=== PATIENT | female | born 1955 | race Caucasian/White ===

== ENCOUNTER 2024-02-16 13:43 | Emergency (ER) | payer OTHER, BC ==
--- NOTE | 2024-02-16 15:15 | RAD REPORT ---
EXAM DESCRIPTION: RAD - Chest Single View - 02/16/2024 3:02 pm CLINICAL HISTORY: SOB Chest pain. COMPARISON: <Comparisons> FINDINGS: Portable technique limits examination quality. The lungs are grossly clear. The heart is normal in size. No displaced fractures. IMPRESSION: No acute intrathoracic process suspected.
[2024-02-16 15:24] LABS: Absolute Eosinophils 0.1 K/uL (0-0.5); Absolute Lymphocytes (CBC) 1.5 K/uL (0.7-4.9); Absolute Monocytes 0.7 K/uL (0.1-1.3); Absolute Neutrophil 4.3 K/uL (1.8-8.0); Basophils % 0.7 % (0-1.3); Eosinophils % 1.4 % (0-4.4); Hematocrit 42.3 % (36.0-45.0); Hemoglobin 14.4 g/dL (12.0-15.0); Lymphocytes % 22.1 % (15.3-44.8); MCH 30.2 pg (27.0-35.0); MCV 88.9 fL (80-100); MPV 6.9 fL (7.6-11.3); Monocytes % 10.9 % (3.3-12.3); Neutrophils % 64.9 % (41.7-73.7); Nucleated Red Blood Cells % 0.2 % (0-0); Platelets 333 thou/uL (152-406); RBC Red Blood Cell Count 4.76 M/uL (3.86-4.86); Red Cell Distribution Width 15.1 % (12.1-15.2)
[2024-02-16 15:48] LABS: Anion Gap 7.2 mEq/L (5.0-15.0); BUN Blood Urea Nitrogen 15 mg/dL (7-18); Bicarbonate 30 mEq/L (21-32); Glomerular Filtration Rate 59 ml/min (=/>90); Glucose Level 93 mg/dL (74-106); Magnesium 2.4 mg/dL (1.6-2.4); NT PRO-BNP 26 pg/mL (<125); Potassium 4.2 mEq/L (3.5-5.1); Sodium Level 139 mEq/L (136-145); T3 Free 1.79 pg/mL (2.18-3.98)
[2024-02-16 16:17] LABS: Troponin High Sensitivity < 3.0 pg/mL (<58.9)
[2024-02-16] MEDS ORDERED: KETOROLAC 30 MG/ML INJ ONE (18:09)
--- NOTE | 2024-02-16 19:40 | EDPHYS ---
Physician Documentation [facility] Name: Yulissa Long Age: 68 yrs Sex: Female : 1955 Arrival Date: 02/16/2024 Time: 13:43 Bed 2 Private MD: ED Physician Marco Spear HPI: 02/15 14:10 This 68 yrs old Female presents to ER via Ambulatory with complaints of Chest Pain, cp Back Pain, Shortness Of Breath, Palpitations. 14:10 The patient or guardian reports chest pain that is located primarily in the anterior cp chest wall, left. Onset: 2 day(s) ago. Associated signs and symptoms: Pertinent positives: palpitations, shortness of breath, left upper back pain, Pertinent negatives: abdominal pain, cough, diaphoresis, lower extremity pain, lower extremity swelling. The chest pain is described as a pressure. 14:10 Severity of pain: in the emergency department the pain is unchanged despite home cp interventions. Patient reports she was told to take 1/2 dose of prescribed thyroid medicine due to low tsh recently. Historical: - Allergies: 13:56 Beta-Blockers (Beta-Adrenergic Blocking Agts); db - Home Meds: 13:56 diltiazem HCl 120 mg Oral Capsule, ER 24 hr [Active]; db - PMHx: 13:56 ARYTHMIA; Hypothyroidism; db - Immunization history:: Adult Immunizations unknown. - Infectious Disease History:: Denies. - Social history:: Smoking status: Patient denies any tobacco usage or history of. ROS: 14:15 Constitutional: Negative for body aches, chills, fever, poor PO intake, cp 14:15 Eyes: Negative for injury, pain, redness, and discharge, cp 14:15 ENT: Negative for drainage from ear(s), ear pain, sore throat, difficulty swallowing, difficulty handling secretions, 14:15 Cardiovascular: Positive for chest pain, palpitations, Negative for edema, 14:15 Respiratory: Positive for shortness of breath, Negative for cough, wheezing, 14:15 Abdomen/GI: Negative for abdominal pain, vomiting, diarrhea, constipation, 14:15 Back: Positive for pain at rest, of the left scapular area and left subscapular area, 14:15 Skin: Negative for cellulitis, rash, 14:15 Neuro: Negative for altered mental status, dizziness, headache, syncope, weakness, 14:15 All other systems are negative, Exam: 14:17 ECG was reviewed by the Attending Physician. cp 14:20 Constitutional: The patient appears in no acute distress, alert, awake, non-toxic, well cp developed, well nourished, anxious, 14:20 Head/Face: Normocephalic, atraumatic. cp 14:20 Eyes: Periorbital structures: appear normal, Conjunctiva: normal, no exudate, no injection, Sclera: no appreciated abnormality, Lids and lashes: appear normal, bilaterally, 14:20 ENT: External ear(s): are unremarkable, Nose: is normal, Mouth: Lips: moist, Oral mucosa: pink and intact, moist, Posterior pharynx: Airway: no evidence of obstruction, patent, 14:20 Neck: ROM/movement: is normal, is supple, without pain, no range of motions limitations, 14:20 Chest/axilla: Inspection: normal, Palpation: is normal, 14:20 Cardiovascular: Rate: normal, Rhythm: regular, Edema: is not appreciated, JVD: is not appreciated, 14:20 Respiratory: the patient does not display signs of respiratory distress, Respirations: normal, no use of accessory muscles, no retractions, labored breathing, is not present, Breath sounds: are clear throughout, no decreased breath sounds, no stridor, no wheezing, 14:20 Abdomen/GI: Inspection: abdomen appears normal, Palpation: abdomen is soft and non-tender, in all quadrants, 14:20 Back: pain, that is mild, of the left scapular area and left subscapular area, ROM is normal, 14:20 Skin: no rash present. 14:20 Neuro: Orientation: to person, place \T\ time. Mentation: is normal, Motor: moves all fours, strength is normal, Sensation: is normal, Vital Signs: 13:56 BP 147 / 73; Pulse 87; Resp 22; Temp 98.5(O); Pulse Ox 100% ; Weight 58.97 kg; Height 5 db ft. 7 in. ; 15:00 BP 124 / 78; Pulse 89; Resp 14; Pulse Ox 100% on R/A; me1 16:00 BP 116 / 74; Pulse 86; Resp 15; Pulse Ox 100% on R/A; me1 17:00 BP 132 / 84; Pulse 71; Resp 18; Pulse Ox 100% on R/A; me1 18:00 BP 131 / 87; Pulse 87; Resp 15; Pulse Ox 96% on R/A; me1 19:00 BP 120 / 91; Pulse 92; Resp 16; Pulse Ox 99% on R/A; me1 19:12 BP 129 / 79; Pulse 64; Resp 17; Temp 98; Pulse Ox 98% on R/A; Pain 0/10; rg5 13:56 Body Mass Index 20.36 (58.97 kg, 170.18 cm) db 19:12 Pain Scale: Adult rg5 Amado Coma Score: 19:13 Eye Response: spontaneous(4). Motor Response: obeys commands(6). Verbal Response: rg5 oriented(5). Total: 15. MDM: 13:56 Patient medically screened. cp 19:40 Data reviewed: vital signs, nurses notes, lab test result(s), EKG, radiologic studies, cp plain films, and as a result, I will discharge patient. 19:40 Differential diagnosis: abnormal EKG, acute myocardial infarction, pleurisy, pneumonia, cp pneumothorax, pulmonary embolus, stable angina, unstable angina. I considered the following discharge prescriptions or medication management in the emergency department Medications were administered in the Emergency Department. See MAR. Care significantly affected by the following chronic conditions: hypothyroidism. Counseling: I had a detailed discussion with the patient and/or guardian regarding the historical points, exam findings, and any diagnostic results supporting the discharge/admit diagnosis, lab results, radiology results, the need for outpatient follow up, a family practitioner, to return to the emergency department if symptoms worsen or persist or if there are any questions or concerns that arise at home. Response to treatment: the patient's symptoms have markedly improved after treatment, and as a result, I will discharge patient. Special discussion: Based on the patient's history, exam, and Dx evaluation, there is no indication for emergent intervention or inpatient Tx. It is understood by the patient/guardian that if the Sx's persist or worsen they need to return immediately for re-evaluation. 02/15 14:07 Order name: Basic Metabolic Panel; Complete Time: 17:08 cp 02/15 17:09 Interpretation: Normal except: CRE 1.04; GFR 59. cp 02/15 14:07 Order name: CBC with Diff; Complete Time: 17:08 cp 02/15 14:07 Order name: D-Dimer; Complete Time: 17:08 cp 02/15 14:07 Order name: Magnesium; Complete Time: 17:08 cp 02/15 14:07 Order name: NT PRO-BNP; Complete Time: 17:08 cp 02/15 14:07 Order name: Troponin HS; Complete Time: 17:08 cp 02/15 14:07 Order name: TSH; Complete Time: 17:08 cp 02/15 14:07 Order name: T3 Free; Complete Time: 17:08 cp 02/15 16:20 Order name: T4 Free; Complete Time: 17:08 EDMS 02/15 17:10 Order name: Troponin High Sensitivity; Complete Time: 19:39 cp 02/15 14:07 Order name: XRAY Chest (1 view); Complete Time: 17:08 cp 02/15 17:10 Interpretation: Report review. cp 02/15 14:07 Order name: EKG; Complete Time: 14:08 cp 02/15 14:07 Order name: Cardiac monitoring; Complete Time: 15:23 cp 02/15 14:07 Order name: EKG - Nurse/Tech; Complete Time: 14:10 cp 02/15 14:07 Order name: IV Saline Lock; Complete Time: 15:12 cp 02/15 14:07 Order name: Labs collected and sent; Complete Time: 15:12 cp 02/15 14:07 Order name: O2 Per Protocol; Complete Time: 15:23 cp 02/15 14:07 Order name: O2 Sat Monitoring; Complete Time: 15:23 cp EC:17 Rate is 99 beats/min. Rhythm is regular. WV interval is normal. QRS interval is normal. cp QT interval is normal. T waves are Inverted in lead aVR. Interpreted by me. Reviewed by me. Administered Medications: 18:13 Drug: Ketorolac IVP 15 mg IVP once Route: IVP; Site: right antecubital; me1 18:14 Follow up: Response: No adverse reaction me1 Disposition Summary: 02/16/24 19:40 Discharge Ordered Notes: Location: Home cp Problem: new cp Symptoms: have improved cp Condition: Stable cp Diagnosis - Chest pain, unspecified cp - Dorsalgia, unspecified cp Followup: cp - With: Private Physician - When: 2 - 3 days - Reason: Recheck today's complaints Discharge Instructions: - Discharge Summary Sheet cp - Acute Back Pain, Adult cp - Nonspecific Chest Pain, Adult cp - Aspirin and Your Heart cp Forms: - Medication Reconciliation Form cp - Antibiotic Education cp - Prescription Opioid Use cp - Patient Portal Instructions cp - Leadership Thank You Letter cp Prescriptions: - Ibuprofen 600 mg Oral tablet - take 1 tablet ORAL route every 8 hours As needed take with food; 30 tablet; cp Refills: 0, Product Selection Permitted Addendum: 02/19/2024 07:42 Co-signature as Attending Physician, Marco Spear MD I agree with the assessment and c kapadia plan of care. Signatures: Dispatcher [employer] Marco Robert MD MD cha Page, Corey PA PA cp Su Tineo, RN RN Zunilda Javier RN RN me1 Corrections: (The following items were deleted from the chart) 02/15 13:57 13:56 Allergies: No Known Allergies; lena paredes
--- NOTE | 2024-02-16 19:40 | ER ---
Nurse's Notes [facility] Name: Yulissa Long Age: 68 yrs Sex: Female : 1955 Arrival Date: 02/16/2024 Time: 13:43 Bed 2 Private MD: Diagnosis: Chest pain, unspecified;Dorsalgia, unspecified Presentation: 02/15 13:54 Chief complaint:. db 13:54 Chief complaint: Patient states: STATES PAIN IN LEFT BACK AND LEFT CHEST STARTED 2 me1 NIGHTS AGO. 13:56 Coronavirus screen: Client denies travel out of the [place] in the last 14 days. At this db time, the client does not indicate any symptoms associated with coronavirus-19. Ebola Screen: Patient negative for fever greater than or equal to 101.5 degrees Fahrenheit, and additional compatible Ebola Virus Disease symptoms Patient denies exposure to infectious person. Patient denies travel to an Ebola-affected area in the 21 days before illness onset. No symptoms or risks identified at this time. Initial Sepsis Screen: Does the patient meet any 2 criteria? No. Patient's initial sepsis screen is negative. Does the patient have a suspected source of infection? No. Patient's initial sepsis screen is negative. Risk Assessment: Do you want to hurt yourself or someone else? Patient reports no desire to harm self or others. Onset of symptoms was February 16, 2024. 13:56 Method Of Arrival: Ambulatory db 13:56 Acuity: JUDY 2 db Triage Assessment: 13:56 General: Appears in no apparent distress. uncomfortable, Behavior is cooperative, db anxious. Pain: Complains of pain in back and chest. Neuro: Level of Consciousness is awake, alert, obeys commands, Oriented to person, place, time, situation. Cardiovascular: Reports chest pain. Respiratory: Airway is patent Respiratory effort is even, unlabored, Respiratory pattern is regular, symmetrical. GI: Abdomen is flat. Historical: - Allergies: 13:56 Beta-Blockers (Beta-Adrenergic Blocking Agts); db - Home Meds: 13:56 diltiazem HCl 120 mg Oral Capsule, ER 24 hr [Active]; db - PMHx: 13:56 ARYTHMIA; Hypothyroidism; db - Immunization history:: Adult Immunizations unknown. - Infectious Disease History:: Denies. - Social history:: Smoking status: Patient denies any tobacco usage or history of. Screenin:05 [facility] ED Fall Risk Assessment (Adult) History of falling in the last 3 months, bp including since admission No falls in past 3 months (0 pts) Confusion or Disorientation No (0 pts) Intoxicated or Sedated No (0 pts) Impaired Gait No (0 pts) Mobility Assist Device Used No (0 pt) Altered Elimination No (0 pt) Score/Fall Risk Level 0 - 2 = Low Risk. Abuse screen: Denies threats or abuse. Denies injuries from another. Nutritional screening: No deficits noted. Tuberculosis screening: No symptoms or risk factors identified. Assessment: 15:05 General: Appears in no apparent distress. Behavior is cooperative, appropriate for age, bp anxious. Pain: Complains of pain in back and chest Pain does not radiate. Pain began 2-3 days ago. Neuro: No deficits noted. Cardiovascular: Reports chest pain. Respiratory: No deficits noted. GI: No signs and/or symptoms were reported involving the gastrointestinal system. : No signs and/or symptoms were reported regarding the genitourinary system. EENT: No deficits noted. Derm: No deficits noted. Musculoskeletal: No deficits noted. 19:12 Reassessment: Patient and/or family updated on plan of care and expected duration. Pain rg5 level reassessed. Patient is alert, oriented x 3, equal unlabored respirations, skin warm/dry/pink. Patient states feeling better. Patient states symptoms have improved. Cardiovascular: Denies palpitations, Capillary refill < 3 seconds. Vital Signs: 13:56 BP 147 / 73; Pulse 87; Resp 22; Temp 98.5(O); Pulse Ox 100% ; Weight 58.97 kg; Height 5 db ft. 7 in. ; 15:00 BP 124 / 78; Pulse 89; Resp 14; Pulse Ox 100% on R/A; me1 16:00 BP 116 / 74; Pulse 86; Resp 15; Pulse Ox 100% on R/A; me1 17:00 BP 132 / 84; Pulse 71; Resp 18; Pulse Ox 100% on R/A; me1 18:00 BP 131 / 87; Pulse 87; Resp 15; Pulse Ox 96% on R/A; me1 19:00 BP 120 / 91; Pulse 92; Resp 16; Pulse Ox 99% on R/A; me1 19:12 BP 129 / 79; Pulse 64; Resp 17; Temp 98; Pulse Ox 98% on R/A; Pain 0/10; rg5 13:56 Body Mass Index 20.36 (58.97 kg, 170.18 cm) db 19:12 Pain Scale: Adult rg5 Amado Coma Score: 19:13 Eye Response: spontaneous(4). Motor Response: obeys commands(6). Verbal Response: rg5 oriented(5). Total: 15. ED Course: 13:46 Patient arrived in ED. im 13:56 Marco Barnhart PA is PHCP. cp 13:56 Marco Spear MD is Attending Physician. cp 13:59 Triage completed. db 14:00 Arm band placed on Patient placed in an exam room. db 14:11 EKG done, by ED staff. db 15:04 XRAY Chest (1 view) In Process Unspecified. EDMS 15:05 Jan Patel, RN is Primary Nurse. bp 15:05 Patient has correct armband on for positive identification. Client placed on continuous bp cardiac and pulse oximetry monitoring. NIBP monitoring applied. advertising strategist on. Pulse ox on. NIBP on. 15:05 O2 via RA. bp 15:11 Inserted saline lock: 20 gauge in right antecubital area, using aseptic technique. as6 Blood collected. 15:12 T3 Free Sent. as6 15:12 TSH Sent. as6 15:12 Basic Metabolic Panel Sent. as6 15:12 CBC with Diff Sent. as6 15:12 D-Dimer Sent. as6 15:12 Magnesium Sent. as6 15:12 NT PRO-BNP Sent. as6 15:12 Troponin HS Sent. as6 19:00 Troponin High Sensitivity Sent. zm 19:13 Door closed. Noise minimized. rg5 19:13 No provider procedures requiring assistance completed. IV is patent, is intact, Flushed rg5 right antecubital. 20:08 Provided Education on: post er care. rg5 20:08 IV discontinued. rg5 Administered Medications: 18:13 Drug: Ketorolac IVP 15 mg IVP once Route: IVP; Site: right antecubital; me1 18:14 Follow up: Response: No adverse reaction me1 Medication: 19:13 VIS not applicable for this client. rg5 Outcome: 19:40 Discharge ordered by . cp 20:07 Discharged to home ambulatory, rg5 20:07 Condition: improved 20:07 Discharge instructions given to patient, Instructed on discharge instructions, follow up and referral plans. medication usage, 20:09 Patient left the ED. rg5 Signatures: Dispatcher [employer] EDMS Marco Barnhart PA PA cp Peltier, Brian, RN RN bp Rick Corley RN RN as6 Aleja Thrasher Danielle, RN RN db Sharda Crocker Michelle, RN RN me1 Stephen Tay RN RN rg5 Corrections: (The following items were deleted from the chart) 13:57 13:56 Allergies: No Known Allergies; db db 13:59 13:56 BP 147 / 73; Resp 22bpm; Temp 98.5F Oral; 58.97 kg; Height 5 ft. 7 in.; BMI: db 20.3; db 18:14 13:54 Chief complaint: Patient states: STATES PAIN IN LEFT BACK AND LEFT CHEST STARTED me1 2 NIGHTS AGO. db
[2024-02-16 21:12] VITALS: BP 129/79; TEMP 98; O2SAT 98
--- NOTE | 2024-02-20 10:36 | EKG ---
Test Date: 2024-02-16 Test Time: 14:06:55 Manager Rental: JAYESH MEASUREMENT RESULTS: Intervals: Rate: 99 GA: 132 QRSD: 70 QT: 332 QTc: 426 Prospect: P: 62 GA: 132 QRS: 28 T: 79 INTERPRETIVE STATEMENTS: Sinus rhythm with frequent premature ventricular complexes Possible Left atrial enlargement Borderline ECG Compared to ECG 11/25/2016 08:03:43 Ventricular premature complex(es) now present Electronically Signed On 02-20-24 10:35:16 CDT by Marco Michael
== END 2024-02-16 20:09 | disposition home or self-care (01) ==
LOC: ER 13:43
DX: R07.9 Chest pain, unspecified (principal); M54.9 Dorsalgia, unspecified
CPT/HCPCS: 36415; 71045; 80048; 83735; 83880; 84439; 84443; 84481; 84484; 85025; 85379; 93005; 96374; 99285